=== PATIENT | female | born 1955 | race Caucasian/White ===

== ENCOUNTER 2017-09-30 20:35 | Emergency (ER) | payer OTHER ==
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
== END 2017-09-30 22:30 | disposition left against medical advice (07) ==
LOC: LB.ED 20:35
DX: R07.81 Pleurodynia (principal); Z88.8 Allergy status to other drugs, medicaments and biological substances
CPT/HCPCS: 99283